=== PATIENT | female | born 1935 | race Caucasian/White ===

== ENCOUNTER → 2017-04-01 | Outpatient (CLI) | payer OTHER ==
[~2017-04-01] MED LIST: DIA2T; LISI-711 PO; METO25TA62 PO; SIMV-13; SIMV5TAB38; [UNRECOGNIZED DRUG - CODE]
== END | disposition home or self-care (01) ==
LOC: LAB 12:53
PROVIDERS: ATTEND Internal Medicine
DX: E05.90 Thyrotoxicosis, unspecified without thyrotoxic crisis or storm (principal)
CPT/HCPCS: 36415; 84439; 84443; 84481; 86376

== ENCOUNTER 2017-04-23 14:45 | Emergency (ER) | payer OTHER ==
[~2017-04-23] VITALS: Ht 154.9 cm; Wt 65.8 kg
[2017-04-23 15:58] VITALS: BP 156/62
[2017-04-23] MEDS ORDERED: NEOMYCIN-BACITRACIN-POLYM UNITDOSE PKG TOP OINT TOP ONE (17:00)
== END 2017-04-23 17:49 | disposition home or self-care (01) ==
LOC: ER 14:53
DX: S61.412A Laceration without foreign body of left hand, initial encounter (principal); S00.83XA Contusion of other part of head, initial encounter; S60.222A Contusion of left hand, initial encounter; M19.042 Primary osteoarthritis, left hand; F17.210 Nicotine dependence, cigarettes, uncomplicated; I10 Essential (primary) hypertension; E07.89 Other specified disorders of thyroid; Z90.49 Acquired absence of other specified parts of digestive tract; Z90.710 Acquired absence of both cervix and uterus; W01.0XXA Fall on same level from slipping, tripping and stumbling without subsequent striking against object, initial encounter; Y93.89 Activity, other specified; Y99.8 Other external cause status; Y92.89 Other specified places as the place of occurrence of the external cause
CPT/HCPCS: 12002; 70450; 73110

== ENCOUNTER → 2017-10-14 | Outpatient (CLI) | payer OTHER ==
[2017-10-14 13:25] LABS: Basophils # (auto) 0.1 uL; Basophils % (auto) 0.9 % (0.0-2.0); Eosinophils # (auto) 0.1 uL; Eosinophils % (auto) 2.5 % (0.0-7.0); Hematocrit 42.4 % (36.0-46.0); Hemoglobin 14.2 g/dL (12.2-16.2); Lymphocytes # (auto) 1.6 uL; Lymphocytes % (auto) 27.4 % (10.0-50.0); Mean Corpuscular Hemoglobin 30.4 pg (28.0-32.0); Mean Corpuscular Hgb Conc. 33.4 g/dL (32.0-36.0); Mean Platelet Volume 9.5 fL (6.9-10.8); Monocytes # (auto) 0.3 uL; Monocytes % (auto) 5.8 % (0.0-12.0); Neutrophils # (auto) 3.7 uL; Neutrophils % (auto) 63.4 % (37.0-80.0); Nucleated Red Blood Cells % 0.1 %; Platelet Count (auto) 155 10^3/uL (140-450); Red Cell Distribution Width 13.6 % (11.8-14.3); White Blood Cell 5.8 10^3/uL (4.4-10.8)
[2017-10-14 15:45] LABS: Albumin 3.8 g/dL (3.4-5.0); BUN/Creatinine Ratio 18.5; Bilirubin, Total 0.5 mg/dL (0.2-1.0); Calcium 9.5 mg/dL (8.5-10.1); Potassium 4.4 mmol/L (3.5-5.1); Total Protein 7.7 g/dL (6.4-8.2)
== END | disposition home or self-care (01) ==
LOC: LAB 12:31
PROVIDERS: ATTEND Internal Medicine
DX: I10 Essential (primary) hypertension (principal); E78.5 Hyperlipidemia, unspecified; E05.90 Thyrotoxicosis, unspecified without thyrotoxic crisis or storm; Z79.899 Other long term (current) drug therapy
CPT/HCPCS: 36415; 80053; 80061; 82306; 84439; 84443; 84481; 85025; 86800

== ENCOUNTER → 2017-10-29 | Outpatient (CLI) | payer OTHER | END | disposition home or self-care (01) | LOC: LAB 14:53 | PROVIDERS: ATTEND Internal Medicine | DX: I10 Essential (primary) hypertension (principal); E78.5 Hyperlipidemia, unspecified | CPT/HCPCS: 82270 ==

== ENCOUNTER → 2017-11-18 | Outpatient (CLI) | payer OTHER | END | disposition home or self-care (01) | LOC: XYW 09:31 | PROVIDERS: ATTEND Internal Medicine | DX: I35.0 Nonrheumatic aortic (valve) stenosis (principal) | CPT/HCPCS: 93306 ==

== ENCOUNTER → 2018-03-03 | Outpatient (CLI) | payer OTHER ==
[2018-03-02 11:45] LABS: Basophils # (auto) 0 uL; Basophils % (auto) 0.7 % (0.0-2.0); Eosinophils # (auto) 0.1 uL; Eosinophils % (auto) 1.6 % (0.0-7.0); Hematocrit 43.5 % (36.0-46.0); Hemoglobin 14.6 g/dL (12.2-16.2); Lymphocytes # (auto) 1.3 uL; Lymphocytes % (auto) 22.8 % (10.0-50.0); Mean Corpuscular Hemoglobin 29.9 pg (28.0-32.0); Mean Corpuscular Hgb Conc. 33.5 g/dL (32.0-36.0); Mean Corpuscular Volume 89.1 fL (80.0-100.0); Monocytes # (auto) 0.4 uL; Neutrophils # (auto) 3.9 uL; Neutrophils % (auto) 67.9 % (37.0-80.0); Platelet Count (auto) 156 10^3/uL (140-450); Red Blood Cells 4.89 10^6/uL (4.0-5.20); Red Cell Distribution Width 14.4 % (11.8-14.3); White Blood Cell 5.7 10^3/uL (4.4-10.8)
[2018-03-02 11:57] LABS: INR 0.97 (0.9-1.15); Prothrombin Time 10.6 sec (9.37-12.3)
== END | disposition home or self-care (01) ==
LOC: CT 08:51
PROVIDERS: ATTEND Surgery
DX: C34.91 Malignant neoplasm of unspecified part of right bronchus or lung (principal); I10 Essential (primary) hypertension; E05.90 Thyrotoxicosis, unspecified without thyrotoxic crisis or storm; E78.00 Pure hypercholesterolemia, unspecified; Z79.01 Long term (current) use of anticoagulants; Z79.899 Other long term (current) drug therapy
CPT/HCPCS: 10022; 32405; 36415; 71045; 77012; 85025; 85610

== ENCOUNTER → 2018-04-01 | Outpatient (CLI) | payer OTHER ==
[~2018-04-01] VITALS: Ht 157.5 cm; Wt 68.0 kg
[~2018-04-01] MED LIST changes: +ADENOSINE 57 MG in GIVE UN-DILUTED 0 ML IV ONE; +ADENOSINE 90 MG/30 ML INJ IV ONE; +CHOL20007 PO; +METH5TAB77 PO; +OMEP20TA PO; +SERT-135 PO; -SIMV-13; +SIMV-13 OR
== END | disposition home or self-care (01) ==
LOC: Rad HDHVI 13:41
PROVIDERS: ATTEND Internal Medicine Cardiovascular Disease
DX: I10 Essential (primary) hypertension (principal); E78.00 Pure hypercholesterolemia, unspecified; I25.10 Atherosclerotic heart disease of native coronary artery without angina pectoris; F17.200 Nicotine dependence, unspecified, uncomplicated; Z79.01 Long term (current) use of anticoagulants; Z79.899 Other long term (current) drug therapy
CPT/HCPCS: 78452; 93005; 96374; 96375; A9500; J0153

== ENCOUNTER → 2018-04-16 | Outpatient (CLI) | payer OTHER ==
[~2018-04-16] MED LIST changes: -ADENOSINE 57 MG in GIVE UN-DILUTED 0 ML IV ONE; -ADENOSINE 90 MG/30 ML INJ IV ONE; +ALBUTEROL SULF 2.5 MG/0.5ML(0.5%) NEB SOLN ONE
== END | disposition home or self-care (01) ==
LOC: RT 08:15
PROVIDERS: ATTEND Internal Medicine Pulmonary Disease
DX: Z01.811 Encounter for preprocedural respiratory examination (principal); E78.00 Pure hypercholesterolemia, unspecified; F17.200 Nicotine dependence, unspecified, uncomplicated; E78.5 Hyperlipidemia, unspecified; I12.9 Hypertensive chronic kidney disease with stage 1 through stage 4 chronic kidney disease, or unspecified chronic kidney disease; N18.3 Chronic kidney disease, stage 3 (moderate); Z79.01 Long term (current) use of anticoagulants
CPT/HCPCS: 94060; 94640

== ENCOUNTER → 2018-06-22 | Outpatient (CLI) | payer OTHER ==
[~2018-06-22] MED LIST changes: -ALBUTEROL SULF 2.5 MG/0.5ML(0.5%) NEB SOLN ONE; -DIA2T; -SIMV5TAB38; -[UNRECOGNIZED DRUG - CODE]
[2018-06-22 14:44] LABS: Basophils # (auto) 0.1 uL; Basophils % (auto) 0.7 % (0.0-2.0); Eosinophils # (auto) 0.2 uL; Eosinophils % (auto) 2.4 % (0.0-7.0); Hematocrit 34.8 % (36.0-46.0); Hemoglobin 11.4 g/dL (12.2-16.2); Lymphocytes # (auto) 1.7 uL; Lymphocytes % (auto) 20.4 % (10.0-50.0); Mean Corpuscular Hemoglobin 28.8 pg (28.0-32.0); Mean Corpuscular Hgb Conc. 32.8 g/dL (32.0-36.0); Mean Corpuscular Volume 87.9 fL (80.0-100.0); Monocytes # (auto) 0.4 uL; Monocytes % (auto) 5.2 % (0.0-12.0); Neutrophils # (auto) 5.9 uL; Neutrophils % (auto) 71.3 % (37.0-80.0); Platelet Count (auto) 198 10^3/uL (140-450); Red Blood Cells 3.96 10^6/uL (4.0-5.20); Red Cell Distribution Width 14.2 % (11.8-14.3); White Blood Cell 8.3 10^3/uL (4.4-10.8)
[2018-06-22 15:24] LABS: Albumin 3.7 g/dL (3.4-5.0); BUN/Creatinine Ratio 20.8; Bilirubin, Total 0.6 mg/dL (0.2-1.0); Calcium 9.5 mg/dL (8.5-10.1); Total Protein 7.8 g/dL (6.4-8.2)
== END | disposition home or self-care (01) ==
LOC: LAB 14:10
PROVIDERS: ATTEND Internal Medicine
DX: I10 Essential (primary) hypertension (principal); E78.5 Hyperlipidemia, unspecified; E03.9 Hypothyroidism, unspecified; J44.9 Chronic obstructive pulmonary disease, unspecified; Z87.891 Personal history of nicotine dependence; Z86.79 Personal history of other diseases of the circulatory system
CPT/HCPCS: 36415; 80053; 84443; 85025

== ENCOUNTER → 2018-06-29 | Outpatient (CLI) | payer OTHER | END | disposition home or self-care (01) | LOC: LAB 11:51 | PROVIDERS: ATTEND Internal Medicine | DX: C34.31 Malignant neoplasm of lower lobe, right bronchus or lung (principal); E03.9 Hypothyroidism, unspecified; E78.5 Hyperlipidemia, unspecified; J44.9 Chronic obstructive pulmonary disease, unspecified; I10 Essential (primary) hypertension | CPT/HCPCS: 36415; 83615 ==

== ENCOUNTER → 2018-12-10 | Outpatient (CLI) | payer OTHER ==
[~2018-12-10] MED LIST changes: +METH5T PO; -METH5TAB77 PO
[2018-12-10 13:27] LABS: Basophils # (auto) 0.1 uL; Eosinophils # (auto) 0.1 uL; Eosinophils % (auto) 2.3 % (0.0-7.0); Hematocrit 38.4 % (36.0-46.0); Hemoglobin 12.7 g/dL (12.2-16.2); Lymphocytes # (auto) 1.7 uL; Lymphocytes % (auto) 26.6 % (10.0-50.0); Mean Corpuscular Hemoglobin 27.7 pg (28.0-32.0); Mean Corpuscular Volume 83.9 fL (80.0-100.0); Monocytes # (auto) 0.4 uL; Monocytes % (auto) 5.5 % (0.0-12.0); Neutrophils # (auto) 4.2 uL; Neutrophils % (auto) 64.6 % (37.0-80.0); Platelet Count (auto) 194 10^3/uL (140-450); Red Blood Cells 4.57 10^6/uL (4.0-5.20); Red Cell Distribution Width 14.4 % (11.8-14.3); White Blood Cell 6.4 10^3/uL (4.4-10.8)
[2018-12-10 14:28] LABS: Albumin 3.9 g/dL (3.4-5.0); Anion Gap 4 (5-15); Blood Urea Nitrogen 23 mg/dL (7-18); Calcium 9.6 mg/dL (8.5-10.1); Carbon Dioxide 27 mmol/L (21-32); Chloride 107 mmol/L (98-107); Glucose 101 mg/dL (74-106); Potassium 4.1 mmol/L (3.5-5.1); Sodium 138 mmol/L (136-145)
[2018-12-10 14:48] LABS: Alanine Aminotransferase 16 U/L (13-56); Alkaline Phosphatase 89 U/L (45-117); Aspartate Aminotransferase 13 U/L (15-37); BUN/Creatinine Ratio 21.9; Bilirubin, Total 0.5 mg/dL (0.2-1.0); GFR African American > 60 mL/min; GFR Non-African American 53 mL/min; Total Protein 8.2 g/dL (6.4-8.2)
== END | disposition home or self-care (01) ==
LOC: LAB 12:59
PROVIDERS: ATTEND Internal Medicine
DX: I10 Essential (primary) hypertension (principal); E05.90 Thyrotoxicosis, unspecified without thyrotoxic crisis or storm
CPT/HCPCS: 36415; 80053; 84443; 85025

== ENCOUNTER → 2018-12-31 | Outpatient (CLI) | payer OTHER ==
[2018-12-31 15:20] LABS: Albumin 3.8 g/dL (3.4-5.0); Calcium 9.3 mg/dL (8.5-10.1)
[2018-12-31 15:22] LABS: BUN/Creatinine Ratio 20.4; Bilirubin, Total 0.5 mg/dL (0.2-1.0); Total Protein 8.3 g/dL (6.4-8.2)
[2018-12-31 15:23] LABS: Basophils # (auto) 0.1 uL; Basophils % (auto) 0.9 % (0.0-2.0); Eosinophils # (auto) 0.2 uL; Eosinophils % (auto) 2.5 % (0.0-7.0); Hematocrit 40.5 % (36.0-46.0); Hemoglobin 13.8 g/dL (12.2-16.2); Lymphocytes % (auto) 29.3 % (10.0-50.0); Mean Corpuscular Hemoglobin 28.4 pg (28.0-32.0); Mean Corpuscular Hgb Conc. 34.2 g/dL (32.0-36.0); Mean Corpuscular Volume 83.1 fL (80.0-100.0); Monocytes # (auto) 0.4 uL; Monocytes % (auto) 5.8 % (0.0-12.0); Neutrophils # (auto) 4.1 uL; Neutrophils % (auto) 61.5 % (37.0-80.0); Nucleated Red Blood Cells % 0.1 %; Platelet Count (auto) 185 10^3/uL (140-450); Red Blood Cells 4.87 10^6/uL (4.0-5.20); Red Cell Distribution Width 14.7 % (11.8-14.3); White Blood Cell 6.7 10^3/uL (4.4-10.8)
== END | disposition home or self-care (01) ==
LOC: LAB 14:36
PROVIDERS: ATTEND Internal Medicine
DX: C34.31 Malignant neoplasm of lower lobe, right bronchus or lung (principal)
CPT/HCPCS: 36415; 80053; 83615; 85025

== ENCOUNTER 2019-02-23 17:09 | Inpatient (IN) | payer OTHER | END 2019-02-26 16:15 | disposition home or self-care (01) | LOC: TELE-WESTW 02-24 00:02 → ER 17:09 → TELE 23:23 → WEST WING 23:50 | DX: I20.9 Angina pectoris, unspecified (principal); N39.0 Urinary tract infection, site not specified; J44.0 Chronic obstructive pulmonary disease with (acute) lower respiratory infection; M48.54XA Collapsed vertebra, not elsewhere classified, thoracic region, initial encounter for fracture; I10 Essential (primary) hypertension; J20.9 Acute bronchitis, unspecified ==

== ENCOUNTER → 2019-03-23 | Outpatient (CLI) | payer OTHER ==
[~2019-03-23] MED LIST changes: -LISI-711 PO; -OMEP20TA PO
[2019-03-23 14:46] LABS: Basophils # (auto) 0 uL; Basophils % (auto) 0.7 % (0.0-2.0); Eosinophils # (auto) 0.3 uL; Eosinophils % (auto) 5.1 % (0.0-7.0); Hematocrit 36.7 % (36.0-46.0); Hemoglobin 12.3 g/dL (12.2-16.2); Lymphocytes # (auto) 1.5 uL; Lymphocytes % (auto) 28.6 % (10.0-50.0); Mean Corpuscular Hemoglobin 28.2 pg (28.0-32.0); Mean Corpuscular Hgb Conc. 33.4 g/dL (32.0-36.0); Mean Corpuscular Volume 84.5 fL (80.0-100.0); Monocytes # (auto) 0.3 uL; Monocytes % (auto) 6.1 % (0.0-12.0); Neutrophils # (auto) 3.1 uL; Neutrophils % (auto) 59.5 % (37.0-80.0); Platelet Count (auto) 146 10^3/uL (140-450); Red Blood Cells 4.34 10^6/uL (4.0-5.20); Red Cell Distribution Width 15.5 % (11.8-14.3); White Blood Cell 5.2 10^3/uL (4.4-10.8)
[2019-03-23 15:01] LABS: INR 0.99 (0.9-1.15); Partial Thromboplastin Time 26.6 sec (23.78-33.04); Prothrombin Time 10.6 sec (9.27-12.13)
== END | disposition home or self-care (01) ==
LOC: LAB 14:29
DX: Z01.818 Encounter for other preprocedural examination (principal); R48.9 Unspecified symbolic dysfunctions
CPT/HCPCS: 36415; 85025; 85610; 85730

== ENCOUNTER → 2019-06-17 | Outpatient (CLI) | payer OTHER ==
[~2019-06-17] MED LIST changes: -SERT-135 PO; +SERT100T PO
[2019-06-17 14:37] LABS: Basophils # (auto) 0.1 uL; Basophils % (auto) 0.9 % (0.0-2.0); Eosinophils # (auto) 0.1 uL; Eosinophils % (auto) 1.5 % (0.0-7.0); Hematocrit 43.8 % (36.0-46.0); Hemoglobin 14.9 g/dL (12.2-16.2); Lymphocytes # (auto) 2.2 uL; Lymphocytes % (auto) 27.1 % (10.0-50.0); Mean Corpuscular Hemoglobin 29.6 pg (28.0-32.0); Mean Corpuscular Hgb Conc. 34.1 g/dL (32.0-36.0); Monocytes # (auto) 0.7 uL; Neutrophils # (auto) 5.2 uL; Neutrophils % (auto) 62.5 % (37.0-80.0); Nucleated Red Blood Cells % 0.1 %; Platelet Count (auto) 177 10^3/uL (140-450); Red Blood Cells 5.03 10^6/uL (4.0-5.20); Red Cell Distribution Width 13.9 % (11.8-14.3); White Blood Cell 8.2 10^3/uL (4.4-10.8)
[2019-06-17 15:06] LABS: Albumin 4.1 g/dL (3.4-5.0); Calcium 10.1 mg/dL (8.5-10.1); Potassium 4.3 mmol/L (3.5-5.1)
[2019-06-17 15:09] LABS: BUN/Creatinine Ratio 18.4; Bilirubin, Total 0.5 mg/dL (0.2-1.0); Total Protein 8.3 g/dL (6.4-8.2)
== END | disposition home or self-care (01) ==
LOC: LAB 14:13
PROVIDERS: ATTEND Internal Medicine
DX: C34.31 Malignant neoplasm of lower lobe, right bronchus or lung (principal)
CPT/HCPCS: 36415; 80053; 83615; 85025

== ENCOUNTER → 2019-07-20 | Outpatient (CLI) | payer OTHER | END | disposition home or self-care (01) | LOC: LAB 10:58 | PROVIDERS: ATTEND Internal Medicine | DX: C34.31 Malignant neoplasm of lower lobe, right bronchus or lung (principal) | CPT/HCPCS: 36415; 82565; 84520 ==

== ENCOUNTER → 2019-08-08 | Outpatient (CLI) | payer OTHER ==
[2019-08-08 11:44] LABS: Basophils # (auto) 0 uL; Basophils % (auto) 0.9 % (0.0-2.0); Eosinophils # (auto) 0.1 uL; Eosinophils % (auto) 2.6 % (0.0-7.0); Lymphocytes % (auto) 20.1 % (10.0-50.0); Mean Corpuscular Hemoglobin 29.3 pg (28.0-32.0); Mean Corpuscular Hgb Conc. 33.3 g/dL (32.0-36.0); Monocytes # (auto) 0.3 uL; Monocytes % (auto) 6.1 % (0.0-12.0); Neutrophils # (auto) 3.5 uL; Neutrophils % (auto) 70.3 % (37.0-80.0); Nucleated Red Blood Cells % 0.1 %; Platelet Count (auto) 187 10^3/uL (140-450); Red Blood Cells 4.78 10^6/uL (4.0-5.20); Red Cell Distribution Width 14.6 % (11.8-14.3); White Blood Cell 5.1 10^3/uL (4.4-10.8)
[2019-08-08 12:10] LABS: Albumin 3.5 g/dL (3.4-5.0); BUN/Creatinine Ratio 28.4; Calcium 9.8 mg/dL (8.5-10.1)
[2019-08-08 12:12] LABS: Bilirubin, Total 0.7 mg/dL (0.2-1.0); Total Protein 7.2 g/dL (6.4-8.2)
== END | disposition home or self-care (01) ==
LOC: LAB 10:41
PROVIDERS: ATTEND Internal Medicine
DX: C34.31 Malignant neoplasm of lower lobe, right bronchus or lung (principal)
CPT/HCPCS: 36415; 80053; 85025

== ENCOUNTER → 2019-08-12 | Outpatient (CLI) | payer OTHER ==
[2019-08-12 12:58] LABS: Basophils # (auto) 0 uL; Basophils % (auto) 0.9 % (0.0-2.0); Eosinophils # (auto) 0.1 uL; Hematocrit 38.3 % (36.0-46.0); Hemoglobin 12.8 g/dL (12.2-16.2); Lymphocytes # (auto) 0.4 uL; Mean Corpuscular Hemoglobin 29.5 pg (28.0-32.0); Mean Corpuscular Hgb Conc. 33.4 g/dL (32.0-36.0); Mean Corpuscular Volume 88.2 fL (80.0-100.0); Monocytes # (auto) 0.1 uL; Monocytes % (auto) 3.4 % (0.0-12.0); Neutrophils # (auto) 3.7 uL; Neutrophils % (auto) 83.7 % (37.0-80.0); Nucleated Red Blood Cells % 0.1 %; Platelet Count (auto) 140 10^3/uL (140-450); Red Blood Cells 4.34 10^6/uL (4.0-5.20); Red Cell Distribution Width 14.5 % (11.8-14.3); White Blood Cell 4.4 10^3/uL (4.4-10.8)
[2019-08-12 13:45] LABS: Albumin 3.5 g/dL (3.4-5.0); Calcium 8.9 mg/dL (8.5-10.1); Potassium 4.5 mmol/L (3.5-5.1)
[2019-08-12 13:49] LABS: BUN/Creatinine Ratio 26.1; Bilirubin, Total 0.7 mg/dL (0.2-1.0)
== END | disposition home or self-care (01) ==
LOC: LAB 12:37
PROVIDERS: ATTEND Internal Medicine
DX: C34.31 Malignant neoplasm of lower lobe, right bronchus or lung (principal)
CPT/HCPCS: 36415; 80053; 83615; 85025

== ENCOUNTER → 2019-08-19 | Outpatient (CLI) | payer OTHER ==
[2019-08-19 12:22] LABS: Basophils # (auto) 0 uL; Basophils % (auto) 1.5 % (0.0-2.0); Eosinophils # (auto) 0 uL; Hematocrit 36.7 % (36.0-46.0); Hemoglobin 12.6 g/dL (12.2-16.2); Lymphocytes # (auto) 0.4 uL; Mean Corpuscular Hemoglobin 29.8 pg (28.0-32.0); Mean Corpuscular Hgb Conc. 34.5 g/dL (32.0-36.0); Mean Corpuscular Volume 86.4 fL (80.0-100.0); Monocytes # (auto) 0.1 uL; Monocytes % (auto) 4.6 % (0.0-12.0); Neutrophils # (auto) 2.1 uL; Neutrophils % (auto) 76.9 % (37.0-80.0); Nucleated Red Blood Cells % 0.2 %; Platelet Count (auto) 120 10^3/uL (140-450); Red Blood Cells 4.24 10^6/uL (4.0-5.20); White Blood Cell 2.8 10^3/uL (4.4-10.8)
[2019-08-19 12:45] LABS: Albumin 3.6 g/dL (3.4-5.0); Calcium 9.2 mg/dL (8.5-10.1)
[2019-08-19 12:47] LABS: BUN/Creatinine Ratio 22.2; Bilirubin, Total 1.2 mg/dL (0.2-1.0); Total Protein 7.2 g/dL (6.4-8.2)
== END | disposition home or self-care (01) ==
LOC: LAB 12:05
PROVIDERS: ATTEND Internal Medicine
DX: C34.31 Malignant neoplasm of lower lobe, right bronchus or lung (principal)
CPT/HCPCS: 36415; 80053; 85025

== ENCOUNTER → 2019-08-26 | Outpatient (CLI) | payer OTHER ==
[2019-08-26 12:47] LABS: Basophils # (auto) 0 uL; Basophils % (auto) 0.9 % (0.0-2.0); Eosinophils # (auto) 0 uL; Eosinophils % (auto) 0.4 % (0.0-7.0); Hematocrit 40.6 % (36.0-46.0); Hemoglobin 13.7 g/dL (12.2-16.2); Lymphocytes # (auto) 0.3 uL; Lymphocytes % (auto) 8.5 % (10.0-50.0); Mean Corpuscular Hemoglobin 29.7 pg (28.0-32.0); Mean Corpuscular Hgb Conc. 33.8 g/dL (32.0-36.0); Mean Corpuscular Volume 87.9 fL (80.0-100.0); Monocytes # (auto) 0.1 uL; Monocytes % (auto) 3.7 % (0.0-12.0); Neutrophils # (auto) 3.3 uL; Neutrophils % (auto) 86.5 % (37.0-80.0); Nucleated Red Blood Cells % 0.5 %; Platelet Count (auto) 104 10^3/uL (140-450); Red Blood Cells 4.62 10^6/uL (4.0-5.20); Red Cell Distribution Width 14.4 % (11.8-14.3); White Blood Cell 3.9 10^3/uL (4.4-10.8)
[2019-08-26 13:04] LABS: Potassium 4.2 mmol/L (3.5-5.1)
[2019-08-26 13:08] LABS: Bilirubin, Total 1.3 mg/dL (0.2-1.0); Calcium 9.4 mg/dL (8.5-10.1); Total Protein 7.8 g/dL (6.4-8.2)
[2019-08-26 13:12] LABS: BUN/Creatinine Ratio 28.3
== END | disposition home or self-care (01) ==
LOC: LAB 11:59
PROVIDERS: ATTEND Internal Medicine
DX: C34.31 Malignant neoplasm of lower lobe, right bronchus or lung (principal)
CPT/HCPCS: 36415; 80053; 83615; 85025

== ENCOUNTER → 2019-09-02 | Outpatient (CLI) | payer OTHER ==
[2019-09-02 12:45] LABS: Basophils # (auto) 0 uL; Basophils % (auto) 1.2 % (0.0-2.0); Eosinophils # (auto) 0 uL; Eosinophils % (auto) 0.8 % (0.0-7.0); Hematocrit 37.9 % (36.0-46.0); Hemoglobin 12.8 g/dL (12.2-16.2); Lymphocytes # (auto) 0.3 uL; Lymphocytes % (auto) 11.8 % (10.0-50.0); Mean Corpuscular Hemoglobin 30.2 pg (28.0-32.0); Mean Corpuscular Hgb Conc. 33.8 g/dL (32.0-36.0); Mean Corpuscular Volume 89.3 fL (80.0-100.0); Monocytes # (auto) 0.1 uL; Monocytes % (auto) 4.2 % (0.0-12.0); Neutrophils # (auto) 2.1 uL; Nucleated Red Blood Cells % 0.7 %; Platelet Count (auto) 99 10^3/uL (140-450); Red Blood Cells 4.24 10^6/uL (4.0-5.20); Red Cell Distribution Width 14.6 % (11.8-14.3); White Blood Cell 2.5 10^3/uL (4.4-10.8)
[2019-09-02 13:09] LABS: Albumin 3.7 g/dL (3.4-5.0); Calcium 9.3 mg/dL (8.5-10.1); Potassium 4.5 mmol/L (3.5-5.1)
[2019-09-02 13:12] LABS: BUN/Creatinine Ratio 25.9; Total Protein 7.3 g/dL (6.4-8.2)
== END | disposition home or self-care (01) ==
LOC: LAB 11:56
PROVIDERS: ATTEND Internal Medicine
DX: C34.31 Malignant neoplasm of lower lobe, right bronchus or lung (principal); J44.9 Chronic obstructive pulmonary disease, unspecified; I71.4 Abdominal aortic aneurysm, without rupture
CPT/HCPCS: 36415; 80053; 83615; 85025

== ENCOUNTER → 2019-09-09 | Outpatient (CLI) | payer OTHER ==
[2019-09-09 12:13] LABS: Hemoglobin 11.5 g/dL (12.2-16.2)
[2019-09-09 12:15] LABS: Hematocrit 33.3 % (36.0-46.0); Mean Corpuscular Hemoglobin 30.8 pg (28.0-32.0); Mean Corpuscular Hgb Conc. 34.5 g/dL (32.0-36.0); Mean Corpuscular Volume 89.4 fL (80.0-100.0); Platelet Count (auto) 124 10^3/uL (140-450); Red Blood Cells 3.72 10^6/uL (4.0-5.20); Red Cell Distribution Width 15.3 % (11.8-14.3)
[2019-09-09 12:42] LABS: BUN/Creatinine Ratio 31.7; Calcium 9.1 mg/dL (8.5-10.1); Potassium 3.9 mmol/L (3.5-5.1)
[2019-09-09 13:05] LABS: Basophils % (manual) 0 (0.0-2.0); Blast Cells 0; Eosinophils % (manual) 0 (0-7); Metamyelocytes % 0; Myelocytes % 0; Promyelocytes % 0; Reactive Lymphocytes 0; White Blood Cell 1.5 10^3/uL (4.4-10.8)
[2019-09-09 13:08] LABS: Band Neutrophils % (manual) 1; Lymphocytes % (manual) 12 (10.0-50.0); Monocytes % (manual) 5 (0-12)
== END | disposition home or self-care (01) ==
LOC: LAB 11:56
PROVIDERS: ATTEND Internal Medicine
DX: C34.31 Malignant neoplasm of lower lobe, right bronchus or lung (principal)
CPT/HCPCS: 36415; 80048; 85007; 85027

== ENCOUNTER → 2019-09-15 | Outpatient (CLI) | payer OTHER ==
[2019-09-15 11:15] LABS: Basophils # (auto) 0 uL; Basophils % (auto) 1.7 % (0.0-2.0); Eosinophils # (auto) 0 uL; Eosinophils % (auto) 0.2 % (0.0-7.0); Hematocrit 35.7 % (36.0-46.0); Hemoglobin 11.9 g/dL (12.2-16.2); Lymphocytes # (auto) 0.3 uL; Lymphocytes % (auto) 10.9 % (10.0-50.0); Mean Corpuscular Hemoglobin 29.9 pg (28.0-32.0); Mean Corpuscular Hgb Conc. 33.4 g/dL (32.0-36.0); Mean Corpuscular Volume 89.6 fL (80.0-100.0); Monocytes # (auto) 0.2 uL; Monocytes % (auto) 10.2 % (0.0-12.0); Neutrophils # (auto) 1.8 uL; Nucleated Red Blood Cells % 0.9 %; Platelet Count (auto) 153 10^3/uL (140-450); Red Blood Cells 3.98 10^6/uL (4.0-5.20); Red Cell Distribution Width 16.5 % (11.8-14.3); White Blood Cell 2.3 10^3/uL (4.4-10.8)
[2019-09-15 11:42] LABS: Potassium 3.8 mmol/L (3.5-5.1)
[2019-09-15 11:45] LABS: BUN/Creatinine Ratio 30.8; Calcium 9.4 mg/dL (8.5-10.1)
== END | disposition home or self-care (01) ==
LOC: LAB 10:41
PROVIDERS: ATTEND Internal Medicine Hematology & Oncology
DX: C34.31 Malignant neoplasm of lower lobe, right bronchus or lung (principal)
CPT/HCPCS: 36415; 80048; 85025

== ENCOUNTER → 2019-09-26 | Outpatient (CLI) | payer OTHER ==
[2019-09-26 10:56] LABS: Basophils # (auto) 0 uL; Basophils % (auto) 0.8 % (0.0-2.0); Eosinophils # (auto) 0 uL; Eosinophils % (auto) 0.2 % (0.0-7.0); Hematocrit 36.4 % (36.0-46.0); Hemoglobin 12.5 g/dL (12.2-16.2); Lymphocytes # (auto) 0.7 uL; Lymphocytes % (auto) 15.3 % (10.0-50.0); Mean Corpuscular Hemoglobin 31.1 pg (28.0-32.0); Mean Corpuscular Hgb Conc. 34.2 g/dL (32.0-36.0); Mean Corpuscular Volume 90.9 fL (80.0-100.0); Monocytes # (auto) 0.4 uL; Monocytes % (auto) 8.9 % (0.0-12.0); Neutrophils # (auto) 3.2 uL; Neutrophils % (auto) 74.8 % (37.0-80.0); Nucleated Red Blood Cells % 0.2 %; Platelet Count (auto) 117 10^3/uL (140-450); Red Blood Cells 4.01 10^6/uL (4.0-5.20); White Blood Cell 4.3 10^3/uL (4.4-10.8)
[2019-09-26 11:34] LABS: Potassium 4.4 mmol/L (3.5-5.1)
[2019-09-26 11:42] LABS: Albumin 3.4 g/dL (3.4-5.0); BUN/Creatinine Ratio 18.1; Bilirubin, Total 0.6 mg/dL (0.2-1.0); Calcium 9.4 mg/dL (8.5-10.1); Total Protein 6.9 g/dL (6.4-8.2)
== END | disposition home or self-care (01) ==
LOC: LAB 10:14
PROVIDERS: ATTEND Internal Medicine
DX: C34.31 Malignant neoplasm of lower lobe, right bronchus or lung (principal); J44.9 Chronic obstructive pulmonary disease, unspecified; F32.9 Major depressive disorder, single episode, unspecified; Z90.2 Acquired absence of lung [part of]; Z88.1 Allergy status to other antibiotic agents; Z87.891 Personal history of nicotine dependence; Z87.09 Personal history of other diseases of the respiratory system; Z82.3 Family history of stroke; Z80.0 Family history of malignant neoplasm of digestive organs; Z82.49 Family history of ischemic heart disease and other diseases of the circulatory system
CPT/HCPCS: 36415; 80053; 83615; 85025

== ENCOUNTER → 2019-10-05 | Outpatient (CLI) | payer OTHER ==
[2019-10-05 12:17] LABS: Basophils # (auto) 0 uL; Basophils % (auto) 0.8 % (0.0-2.0); Eosinophils # (auto) 0.1 uL; Eosinophils % (auto) 1.8 % (0.0-7.0); Hematocrit 31.4 % (36.0-46.0); Hemoglobin 10.9 g/dL (12.2-16.2); Lymphocytes # (auto) 0.7 uL; Lymphocytes % (auto) 17.3 % (10.0-50.0); Mean Corpuscular Hemoglobin 31.6 pg (28.0-32.0); Mean Corpuscular Hgb Conc. 34.6 g/dL (32.0-36.0); Mean Corpuscular Volume 91.5 fL (80.0-100.0); Monocytes # (auto) 0.4 uL; Monocytes % (auto) 9.4 % (0.0-12.0); Neutrophils # (auto) 3.1 uL; Neutrophils % (auto) 70.7 % (37.0-80.0); Nucleated Red Blood Cells % 0.4 %; Platelet Count (auto) 120 10^3/uL (140-450); Red Blood Cells 3.43 10^6/uL (4.0-5.20); White Blood Cell 4.3 10^3/uL (4.4-10.8)
[2019-10-05 12:38] LABS: Albumin 3.5 g/dL (3.4-5.0); Calcium 9.5 mg/dL (8.5-10.1)
[2019-10-05 12:41] LABS: Bilirubin, Total 0.7 mg/dL (0.2-1.0); Total Protein 6.5 g/dL (6.4-8.2)
== END | disposition home or self-care (01) ==
LOC: LAB 12:06
PROVIDERS: ATTEND Internal Medicine
DX: C34.31 Malignant neoplasm of lower lobe, right bronchus or lung (principal); Z87.891 Personal history of nicotine dependence; Z88.1 Allergy status to other antibiotic agents
CPT/HCPCS: 36415; 80053; 83615; 85025

== ENCOUNTER → 2019-10-17 | Outpatient (CLI) | payer OTHER ==
[2019-10-17 11:02] LABS: Basophils # (auto) 0 uL; Basophils % (auto) 1.4 % (0.0-2.0); Eosinophils # (auto) 0 uL; Eosinophils % (auto) 0.9 % (0.0-7.0); Hematocrit 27.8 % (36.0-46.0); Hemoglobin 9.9 g/dL (12.2-16.2); Lymphocytes # (auto) 0.5 uL; Lymphocytes % (auto) 18.7 % (10.0-50.0); Mean Corpuscular Hemoglobin 32.4 pg (28.0-32.0); Mean Corpuscular Hgb Conc. 35.8 g/dL (32.0-36.0); Mean Corpuscular Volume 90.6 fL (80.0-100.0); Monocytes # (auto) 0.3 uL; Monocytes % (auto) 10.9 % (0.0-12.0); Neutrophils # (auto) 1.7 uL; Neutrophils % (auto) 68.1 % (37.0-80.0); Platelet Count (auto) 134 10^3/uL (140-450); Red Blood Cells 3.07 10^6/uL (4.0-5.20); White Blood Cell 2.5 10^3/uL (4.4-10.8)
[2019-10-17 11:06] LABS: Albumin 3.6 g/dL (3.4-5.0); Potassium 3.3 mmol/L (3.5-5.1)
[2019-10-17 11:08] LABS: Red Cell Distribution Width 21.1 % (11.8-14.3)
[2019-10-17 11:12] LABS: BUN/Creatinine Ratio 22.7; Total Protein 7.2 g/dL (6.4-8.2)
== END | disposition home or self-care (01) ==
LOC: LAB 10:29
PROVIDERS: ATTEND Internal Medicine
DX: C34.31 Malignant neoplasm of lower lobe, right bronchus or lung (principal)
CPT/HCPCS: 36415; 80053; 83615; 85025

== ENCOUNTER → 2019-11-01 | Outpatient (CLI) | payer OTHER ==
[2019-11-01 12:31] LABS: Basophils # (auto) 0 uL; Basophils % (auto) 0.6 % (0.0-2.0); Eosinophils # (auto) 0.1 uL; Eosinophils % (auto) 0.8 % (0.0-7.0); Hematocrit 27.5 % (36.0-46.0); Hemoglobin 9.3 g/dL (12.2-16.2); Lymphocytes # (auto) 0.4 uL; Lymphocytes % (auto) 5.9 % (10.0-50.0); Mean Corpuscular Hemoglobin 33.7 pg (28.0-32.0); Mean Corpuscular Hgb Conc. 33.8 g/dL (32.0-36.0); Mean Corpuscular Volume 99.6 fL (80.0-100.0); Monocytes # (auto) 0.4 uL; Monocytes % (auto) 5.7 % (0.0-12.0); Neutrophils # (auto) 5.7 uL; Nucleated Red Blood Cells % 0.4 %; Platelet Count (auto) 120 10^3/uL (140-450); Red Blood Cells 2.76 10^6/uL (4.0-5.20); White Blood Cell 6.5 10^3/uL (4.4-10.8)
[2019-11-01 12:48] LABS: Red Cell Distribution Width 21.4 % (11.8-14.3)
[2019-11-01 13:00] LABS: Potassium 4.5 mmol/L (3.5-5.1)
[2019-11-01 13:08] LABS: Albumin 3.2 g/dL (3.4-5.0); BUN/Creatinine Ratio 18.8; Bilirubin, Total 0.7 mg/dL (0.2-1.0); Calcium 8.8 mg/dL (8.5-10.1); Total Protein 6.5 g/dL (6.4-8.2)
== END | disposition home or self-care (01) ==
LOC: LAB 12:06
PROVIDERS: ATTEND Internal Medicine
DX: C34.31 Malignant neoplasm of lower lobe, right bronchus or lung (principal)
CPT/HCPCS: 36415; 80053; 85025

== ENCOUNTER 2019-11-23 11:59 | Inpatient (IN) | payer OTHER ==
[~2019-11-23] VITALS: Ht 157.5 cm; Wt 58.1 kg
[~2019-11-23 11:59] MED LIST changes: -METO25TA62 PO; +METO25TA93 PO
[2019-11-23 13:33] LABS: Basophils # (auto) 0 uL; Basophils % (auto) 0.7 % (0.0-2.0); Eosinophils # (auto) 0.1 uL; Eosinophils % (auto) 1.9 % (0.0-7.0); Hematocrit 27.5 % (36.0-46.0); Hemoglobin 9.2 g/dL (12.2-16.2); Lymphocytes # (auto) 0.3 uL; Lymphocytes % (auto) 5.6 % (10.0-50.0); Mean Corpuscular Hgb Conc. 33.6 g/dL (32.0-36.0); Monocytes # (auto) 0.4 uL; Monocytes % (auto) 7.5 % (0.0-12.0); Neutrophils # (auto) 4.5 uL; Neutrophils % (auto) 84.3 % (37.0-80.0); Platelet Count (auto) 165 10^3/uL (140-450); Red Cell Distribution Width 16.5 % (11.8-14.3); White Blood Cell 5.3 10^3/uL (4.4-10.8)
[2019-11-23 13:54] LABS: Albumin 2.8 g/dL (3.4-5.0); Calcium 8.8 mg/dL (8.5-10.1); Potassium 3.1 mmol/L (3.5-5.1)
[2019-11-23 13:57] LABS: BUN/Creatinine Ratio 24.6; Bilirubin, Total 0.6 mg/dL (0.2-1.0); Total Protein 6.8 g/dL (6.4-8.2)
[2019-11-23] MEDS ORDERED: ALBUTEROL SULF 2.5 MG/0.5ML(0.5%) NEB SOLN NEB ONE (15:00)
[2019-11-23] MEDS ORDERED: methylPREDNISolone SOD SUCC 125 MG/2 ML VL IV ONE (15:00)
[2019-11-23] MEDS ORDERED: IPRATROPIUM BROM 0.5 MG/2.5ML INH SOL NEB ONE (15:00)
[2019-11-23] MEDS ORDERED: POTASSIUM EFFERVESENT TAB 25 MEQ PO ONE (15:15)
[2019-11-23] MEDS ORDERED: LEVOFLOXACIN 500MG 100 ML IV ONE (15:15)
[2019-11-23] MEDS ORDERED: FUROSEMIDE 40 MG/4 ML VIAL IV ONE (15:15)
[2019-11-23] MEDS ORDERED: ONDANSETRON HCL 4 MG/2 ML VIAL ONE (16:28)
[2019-11-23] MEDS ORDERED: ONDANSETRON HCL 4 MG/2 ML VIAL IV ONE (16:30)
[2019-11-23 18:09] VITALS: BP 117/56
[2019-11-23] MEDS ORDERED: MORPHINE SULF INJ 2 MG/ML SYRINGE 1ML IV PRN ×2 (18:15)
[2019-11-23] MEDS ORDERED: ALBUTEROL SULF 2.5 MG/0.5ML(0.5%) NEB SOLN NEB PRN (18:15)
[2019-11-23] MEDS ORDERED: ACETAMINOPHEN 500 MG TAB PO PRN (18:15)
[2019-11-23] MEDS ORDERED: ONDANSETRON HCL 4 MG/2 ML VIAL IV PRN (18:15)
[2019-11-23] MEDS ORDERED: LACTULOSE 20Gm/30ML SOLN PO PRN (18:15)
[2019-11-23] MEDS ORDERED: NITROGLYCERIN 0.4 MG SL TAB SL PRN (18:15)
[2019-11-23 18:58] VITALS: BP 126/75
[2019-11-23 21:16] LABS: Urine Bacteria NONE SEEN /hpf (None Seen); Urine Blood Negative /uL (Negative); Urine Specific Gravity 1.008 (1.001-1.035); Urine WBC 2 /hpf (0 - 5)
[2019-11-23 22:00] VITALS: BP 125/56
[2019-11-23] MEDS: CARVEDILOL 12.5 MG TAB PO SCH (22:00)
[2019-11-23] MEDS ORDERED: ENOXAPARIN SOD 60 MG/0.6 ML SYRINGE SC SCH (22:00)
[2019-11-23] MEDS: ATORVASTATIN 20 MG TAB PO SCH (23:52)
[2019-11-23] MEDS: methylPREDNISolone SOD SUCC 40 MG/ML VL IV SCH (23:54)
[2019-11-23] MEDS: CLINDAMYCIN 600MG IV 50 ML IV SCH (23:54)
[2019-11-24] VITALS: BP 107/44
[2019-11-24] MEDS: ALBUTEROL SULF 2.5 MG/0.5ML(0.5%) NEB SOLN NEB SCH ×4 (00:05→18:18)
[2019-11-24] MEDS: IPRATROPIUM BROM 0.5 MG/2.5ML INH SOL NEB SCH ×4 (00:05→18:18)
[2019-11-24 04:00] VITALS: BP 105/58
[2019-11-24 05:39] LABS: Basophils # (auto) 0 uL; Eosinophils # (auto) 0 uL; Lymphocytes # (auto) 0.2 uL; Monocytes % (auto) 1.8 % (0.0-12.0); White Blood Cell 2.8 10^3/uL (4.4-10.8)
[2019-11-24 05:42] LABS: Basophils % (auto) 0.2 % (0.0-2.0); Hematocrit 24.3 % (36.0-46.0); Mean Corpuscular Hgb Conc. 32.9 g/dL (32.0-36.0); Mean Corpuscular Volume 100.2 fL (80.0-100.0); Monocytes # (auto) 0 uL; Neutrophils # (auto) 2.6 uL; Nucleated Red Blood Cells % 0.1 %; Platelet Count (auto) 156 10^3/uL (140-450); Red Blood Cells 2.43 10^6/uL (4.0-5.20); Red Cell Distribution Width 16.6 % (11.8-14.3)
[2019-11-24 05:56] LABS: Albumin 2.7 g/dL (3.4-5.0); Potassium 3.8 mmol/L (3.5-5.1)
[2019-11-24 06:00] LABS: BUN/Creatinine Ratio 28.6; Bilirubin, Total 0.6 mg/dL (0.2-1.0); Total Protein 6.3 g/dL (6.4-8.2)
[2019-11-24] MEDS: CLINDAMYCIN 600MG IV 50 ML IV SCH (06:49)
[2019-11-24 08:00] VITALS: BP 119/66
[2019-11-24] MEDS ORDERED: LEVOFLOXACIN 500MG 100 ML IV SCH (10:00)
[2019-11-24] MEDS: ASPirin 81 mg TAB PO SCH (10:00)
[2019-11-24] MEDS: methylPREDNISolone SOD SUCC 40 MG/ML VL IV SCH ×2 (10:11→22:46)
[2019-11-24] MEDS: DABIGATRAN 75 MG CAP PO SCH ×2 (10:12→22:47)
[2019-11-24] MEDS: SERTRALINE HCL 50 MG TAB PO SCH (10:14)
[2019-11-24] MEDS: CHOLECALCIFEROL (VITD3) 1,000IU=25mCg TAB PO SCH (10:14)
[2019-11-24] MEDS: CARVEDILOL 12.5 MG TAB PO SCH ×2 (10:15→22:48)
[2019-11-24] MEDS: FUROSEMIDE 40 MG/4 ML VIAL IV SCH (10:16)
[2019-11-24] MEDS: POTASSIUM CHL 20 Meq TABLET PO SCH (10:16)
[2019-11-24 11:40] VITALS: BP 121/58
[2019-11-24] MEDS ORDERED: PIPERACILLIN-TAZOB 3.375GM 100 ML IV ONE (14:00)
[2019-11-24] MEDS: Ensure HIGH Protein Chocolate 8oz Bottle PO SCH ×2 (14:10→18:17)
[2019-11-24] MEDS ORDERED: PANTOPRAZOLE 40 MG TAB PO ONE (14:15)
[2019-11-24] MEDS: ACETAMINOPHEN 500 MG TAB PO PRN (14:17)
[2019-11-24] MEDS: MAGNESIUM SULFATE 1GM/100ML 100 ML IV SCH ×2 (15:16→16:21)
[2019-11-24 16:00] VITALS: BP 102/62
[2019-11-24] MEDS: PIPERACILLIN-TAZOB 3.375GM 100 ML IV SCH (18:23)
[2019-11-24 20:00] VITALS: BP 115/53
[2019-11-24] MEDS: traMADol HCL 50 MG TAB PO PRN (22:47)
[2019-11-24] MEDS: ATORVASTATIN 20 MG TAB PO SCH (22:48)
[2019-11-25] VITALS (7 sets, daily range): BP systolic 115–139; BP diastolic 53–77
[2019-11-25] MEDS: IPRATROPIUM BROM 0.5 MG/2.5ML INH SOL NEB SCH ×4 (00:17→19:46)
[2019-11-25] MEDS: ALBUTEROL SULF 2.5 MG/0.5ML(0.5%) NEB SOLN NEB SCH ×4 (00:17→19:46)
[2019-11-25] MEDS: PIPERACILLIN-TAZOB 3.375GM 100 ML IV SCH ×5 (01:25→23:40)
[2019-11-25 06:22] LABS: Basophils # (auto) 0 uL; Eosinophils # (auto) 0 uL; Hemoglobin 8.3 g/dL (12.2-16.2); Lymphocytes # (auto) 0.2 uL; Monocytes # (auto) 0.2 uL
[2019-11-25 06:25] LABS: Basophils % (auto) 0.1 % (0.0-2.0); Hematocrit 24.4 % (36.0-46.0); Neutrophils # (auto) 8.1 uL; Neutrophils % (auto) 95.9 % (37.0-80.0); Platelet Count (auto) 183 10^3/uL (140-450); Red Blood Cells 2.51 10^6/uL (4.0-5.20); Red Cell Distribution Width 16.6 % (11.8-14.3); White Blood Cell 8.4 10^3/uL (4.4-10.8)
[2019-11-25 06:45] LABS: Calcium 8.9 mg/dL (8.5-10.1); Potassium 4.5 mmol/L (3.5-5.1)
[2019-11-25 06:54] LABS: BUN/Creatinine Ratio 40.7; Magnesium 2.2 mg/dL (1.6-2.6)
[2019-11-25] MEDS: Ensure HIGH Protein Chocolate 8oz Bottle PO SCH ×3 (08:00→18:11)
[2019-11-25] MEDS: CARVEDILOL 12.5 MG TAB PO SCH ×2 (10:00→21:04)
[2019-11-25] MEDS: ASPirin 81 mg TAB PO SCH (10:00)
[2019-11-25] MEDS: FUROSEMIDE 40 MG/4 ML VIAL IV SCH (10:36)
[2019-11-25] MEDS: methylPREDNISolone SOD SUCC 40 MG/ML VL IV SCH ×2 (10:36→21:04)
[2019-11-25] MEDS: POTASSIUM CHL 20 Meq TABLET PO SCH (10:37)
[2019-11-25] MEDS: DABIGATRAN 75 MG CAP PO SCH ×2 (10:37→21:05)
[2019-11-25] MEDS: PANTOPRAZOLE 40 MG TAB PO SCH (10:38)
[2019-11-25] MEDS: SERTRALINE HCL 50 MG TAB PO SCH (10:38)
[2019-11-25] MEDS: CHOLECALCIFEROL (VITD3) 1,000IU=25mCg TAB PO SCH (10:38)
[2019-11-25] MEDS: methIMAzole 5 MG TAB PO SCH (12:04)
[2019-11-25] MEDS ORDERED: SERT-274 PO (16:31)
[2019-11-25] MEDS ORDERED: DABI75CA5 PO (16:31)
[2019-11-25] MEDS: ATORVASTATIN 20 MG TAB PO SCH (21:05)
[2019-11-26] MEDS: IPRATROPIUM BROM 0.5 MG/2.5ML INH SOL NEB SCH ×4 (00:37→18:34)
[2019-11-26] MEDS: ALBUTEROL SULF 2.5 MG/0.5ML(0.5%) NEB SOLN NEB SCH ×4 (00:37→18:33)
[2019-11-26 04:00] VITALS: BP 136/68
[2019-11-26] MEDS: PIPERACILLIN-TAZOB 3.375GM 100 ML IV SCH ×3 (05:32→18:15)
[2019-11-26 05:48] LABS: Potassium 4.3 mmol/L (3.5-5.1)
[2019-11-26 05:54] LABS: BUN/Creatinine Ratio 43.2; Calcium 9.1 mg/dL (8.5-10.1)
[2019-11-26 07:40] VITALS: BP 124/64
[2019-11-26] MEDS: Ensure HIGH Protein Chocolate 8oz Bottle PO SCH ×3 (08:00→18:15)
[2019-11-26] MEDS: DABIGATRAN 75 MG CAP PO SCH ×2 (09:53→22:34)
[2019-11-26] MEDS: PANTOPRAZOLE 40 MG TAB PO SCH (09:53)
[2019-11-26] MEDS: SERTRALINE HCL 50 MG TAB PO SCH (09:53)
[2019-11-26] MEDS: CHOLECALCIFEROL (VITD3) 1,000IU=25mCg TAB PO SCH (09:53)
[2019-11-26] MEDS: POTASSIUM CHL 20 Meq TABLET PO SCH (09:53)
[2019-11-26] MEDS: methylPREDNISolone SOD SUCC 40 MG/ML VL IV SCH ×2 (09:53→22:34)
[2019-11-26] MEDS: ASPirin 81 mg TAB PO SCH (09:54)
[2019-11-26] MEDS: FUROSEMIDE 40 MG/4 ML VIAL IV SCH (09:54)
[2019-11-26] MEDS: CARVEDILOL 12.5 MG TAB PO SCH ×2 (09:54→22:34)
[2019-11-26 11:50] VITALS: BP 113/62
[2019-11-26] MEDS: ACETAMINOPHEN 500 MG TAB PO PRN (12:44)
[2019-11-26 15:45] VITALS: BP 133/77
[2019-11-26 19:30] VITALS: BP 133/77
[2019-11-26 20:00] VITALS: BP 152/83
[2019-11-26] MEDS: ATORVASTATIN 20 MG TAB PO SCH (22:33)
[2019-11-26] MEDS: TEMAZEPAM 15 MG CAP PO PRN (22:34)
[2019-11-27] VITALS: BP 131/82
[2019-11-27] MEDS: ALBUTEROL SULF 2.5 MG/0.5ML(0.5%) NEB SOLN NEB SCH ×4 (00:26→19:18)
[2019-11-27] MEDS: IPRATROPIUM BROM 0.5 MG/2.5ML INH SOL NEB SCH ×4 (00:26→19:18)
[2019-11-27 03:39] VITALS: BP 137/80
[2019-11-27] MEDS: PIPERACILLIN-TAZOB 3.375GM 100 ML IV SCH ×4 (06:45→17:57)
[2019-11-27 08:00] VITALS: BP 146/80
[2019-11-27] MEDS: Ensure HIGH Protein Chocolate 8oz Bottle PO SCH ×3 (08:16→18:00)
[2019-11-27] MEDS: ASPirin 81 mg TAB PO SCH (10:00)
[2019-11-27] MEDS: methylPREDNISolone SOD SUCC 40 MG/ML VL IV SCH ×2 (10:24→22:01)
[2019-11-27] MEDS: FUROSEMIDE 40 MG/4 ML VIAL IV SCH (10:24)
[2019-11-27] MEDS: PANTOPRAZOLE 40 MG TAB PO SCH (10:24)
[2019-11-27] MEDS: POTASSIUM CHL 20 Meq TABLET PO SCH (10:24)
[2019-11-27] MEDS: SERTRALINE HCL 50 MG TAB PO SCH (10:24)
[2019-11-27] MEDS: DABIGATRAN 75 MG CAP PO SCH ×2 (10:24→22:03)
[2019-11-27] MEDS: CARVEDILOL 12.5 MG TAB PO SCH ×2 (10:25→22:02)
[2019-11-27] MEDS: CHOLECALCIFEROL (VITD3) 1,000IU=25mCg TAB PO SCH (10:25)
[2019-11-27 12:00] VITALS: BP 126/66
[2019-11-27] MEDS: ACETAMINOPHEN 500 MG TAB PO PRN (20:43)
[2019-11-27 22:00] VITALS: BP 118/70
[2019-11-27] MEDS: ATORVASTATIN 20 MG TAB PO SCH (22:03)
[2019-11-28] MEDS: ALBUTEROL SULF 2.5 MG/0.5ML(0.5%) NEB SOLN NEB SCH ×5 (00:22→23:59)
[2019-11-28] MEDS: IPRATROPIUM BROM 0.5 MG/2.5ML INH SOL NEB SCH ×5 (00:22→23:59)
[2019-11-28] MEDS: PIPERACILLIN-TAZOB 3.375GM 100 ML IV SCH ×5 (00:30→23:48)
[2019-11-28 05:24] VITALS: BP_SYST 109; BP_SYST 124; BP_DIAS 53; BP_DIAS 75
[2019-11-28 05:59] LABS: Basophils # (auto) 0 uL; Basophils % (auto) 0.1 % (0.0-2.0); Eosinophils # (auto) 0 uL; Eosinophils % (auto) 0.1 % (0.0-7.0); Hematocrit 26.2 % (36.0-46.0); Lymphocytes # (auto) 0.3 uL; Lymphocytes % (auto) 5.3 % (10.0-50.0); Mean Corpuscular Hemoglobin 33.2 pg (28.0-32.0); Mean Corpuscular Hgb Conc. 34.3 g/dL (32.0-36.0); Mean Corpuscular Volume 96.8 fL (80.0-100.0); Monocytes # (auto) 0.3 uL; Monocytes % (auto) 5.9 % (0.0-12.0); Neutrophils % (auto) 88.6 % (37.0-80.0); Platelet Count (auto) 203 10^3/uL (140-450); Red Blood Cells 2.71 10^6/uL (4.0-5.20); Red Cell Distribution Width 16.3 % (11.8-14.3); White Blood Cell 5.6 10^3/uL (4.4-10.8)
[2019-11-28 06:19] LABS: BUN/Creatinine Ratio 46.3; Calcium 9.3 mg/dL (8.5-10.1); Potassium 4.5 mmol/L (3.5-5.1)
[2019-11-28] MEDS: Ensure HIGH Protein Chocolate 8oz Bottle PO SCH ×3 (08:00→18:01)
[2019-11-28 09:00] VITALS: BP 143/72
[2019-11-28] MEDS: CHOLECALCIFEROL (VITD3) 1,000IU=25mCg TAB PO SCH (10:40)
[2019-11-28] MEDS: ASPirin 81 mg TAB PO SCH (10:42)
[2019-11-28] MEDS: CARVEDILOL 12.5 MG TAB PO SCH ×2 (10:42→21:37)
[2019-11-28] MEDS: PANTOPRAZOLE 40 MG TAB PO SCH (10:42)
[2019-11-28] MEDS: POTASSIUM CHL 20 Meq TABLET PO SCH (10:43)
[2019-11-28] MEDS: SERTRALINE HCL 50 MG TAB PO SCH (10:43)
[2019-11-28] MEDS: methylPREDNISolone SOD SUCC 40 MG/ML VL IV SCH (10:44)
[2019-11-28] MEDS: FUROSEMIDE 40 MG/4 ML VIAL IV SCH (10:44)
[2019-11-28] MEDS: DABIGATRAN 75 MG CAP PO SCH ×2 (11:20→21:38)
[2019-11-28] MEDS: methIMAzole 5 MG TAB PO SCH (12:02)
[2019-11-28 13:00] VITALS: BP 140/67
[2019-11-28 17:00] VITALS: BP 119/77
[2019-11-28] MEDS: ATORVASTATIN 20 MG TAB PO SCH (21:37)
[2019-11-28] MEDS: TEMAZEPAM 15 MG CAP PO PRN (21:38)
[2019-11-28 21:59] VITALS: BP 101/57
[2019-11-28] MEDS ORDERED: methylPREDNISolone SOD SUCC 40 MG/ML VL IV SCH (22:00)
[2019-11-29] MEDS: traMADol HCL 50 MG TAB PO PRN (03:22)
[2019-11-29 05:04] VITALS: BP 110/65
[2019-11-29] MEDS: IPRATROPIUM BROM 0.5 MG/2.5ML INH SOL NEB SCH ×2 (07:18→12:51)
[2019-11-29] MEDS: ALBUTEROL SULF 2.5 MG/0.5ML(0.5%) NEB SOLN NEB SCH ×2 (07:18→12:51)
[2019-11-29] MEDS: PANTOPRAZOLE 40 MG TAB PO SCH (08:27)
[2019-11-29] MEDS: Ensure HIGH Protein Chocolate 8oz Bottle PO SCH ×2 (08:27→12:08)
[2019-11-29 09:00] VITALS: BP 98/70
[2019-11-29] MEDS ORDERED: FUROSEMIDE 40 MG TAB PO SCH (10:00)
[2019-11-29] MEDS ORDERED: predniSONE 20 MG TAB PO SCH (10:00)
[2019-11-29] MEDS: ASPirin 81 mg TAB PO SCH (10:00)
[2019-11-29] MEDS: CARVEDILOL 12.5 MG TAB PO SCH (10:23)
[2019-11-29] MEDS: CHOLECALCIFEROL (VITD3) 1,000IU=25mCg TAB PO SCH (10:24)
[2019-11-29] MEDS: DABIGATRAN 75 MG CAP PO SCH (10:24)
[2019-11-29] MEDS: POTASSIUM CHL 20 Meq TABLET PO SCH (10:24)
[2019-11-29] MEDS: SERTRALINE HCL 50 MG TAB PO SCH (10:25)
[2019-11-29] MEDS: PIPERACILLIN-TAZOB 3.375GM 100 ML IV SCH (12:08)
[2019-11-29 13:00] VITALS: BP 103/68
[2019-11-29] MEDS ORDERED: LEVO750T2 PO (14:41)
[2019-11-29] MEDS ORDERED: PANT40TA2 PO (14:41)
[2019-11-29 16:34] VITALS: BP 103/68
[2019-11-29 17:00] VITALS: BP 110/66
== END 2019-11-29 17:39 | disposition home health service (06) | DRG 280 ==
LOC: EDBD 11:59 → EDUNIT# 11:59 → ER 11:59 → TELE 12:00 → DOU IN ICU 21:58 → WEST WING 11-27 18:05 → TELE-WESTW 11-28 07:22
PROVIDERS: ADMIT Internal Medicine; ATTEND Internal Medicine
DX: I21.A1 Myocardial infarction type 2 (principal); J69.0 Pneumonitis due to inhalation of food and vomit; I50.33 Acute on chronic diastolic (congestive) heart failure; J96.21 Acute and chronic respiratory failure with hypoxia; E44.0 Moderate protein-calorie malnutrition; G81.91 Hemiplegia, unspecified affecting right dominant side; J98.11 Atelectasis; R65.10 Systemic inflammatory response syndrome (SIRS) of non-infectious origin without acute organ dysfunction; D64.9 Anemia, unspecified; R79.89 Other specified abnormal findings of blood chemistry; E87.6 Hypokalemia; I48.0 Paroxysmal atrial fibrillation; E03.9 Hypothyroidism, unspecified; E78.5 Hyperlipidemia, unspecified; I71.4 Abdominal aortic aneurysm, without rupture; E05.90 Thyrotoxicosis, unspecified without thyrotoxic crisis or storm; I35.0 Nonrheumatic aortic (valve) stenosis; D63.8 Anemia in other chronic diseases classified elsewhere; I11.0 Hypertensive heart disease with heart failure; K21.9 Gastro-esophageal reflux disease without esophagitis; J43.9 Emphysema, unspecified; Z79.899 Other long term (current) drug therapy; Z80.0 Family history of malignant neoplasm of digestive organs; Z82.3 Family history of stroke; Z82.49 Family history of ischemic heart disease and other diseases of the circulatory system; Z85.038 Personal history of other malignant neoplasm of large intestine; Z86.79 Personal history of other diseases of the circulatory system; Z87.891 Personal history of nicotine dependence; Z90.2 Acquired absence of lung [part of]; Z99.81 Dependence on supplemental oxygen; Z68.23 Body mass index [BMI] 23.0-23.9, adult; Z90.49 Acquired absence of other specified parts of digestive tract; Z90.710 Acquired absence of both cervix and uterus; Z88.8 Allergy status to other drugs, medicaments and biological substances; Z85.118 Personal history of other malignant neoplasm of bronchus and lung
CPT/HCPCS: 36415; 71045; 71250; 80048; 80053; 80061; 81001; 82550; 83036; 83735; 83880; 84436; 84443; 84481; 84484; 85025; 87040; 87070; 87086; 87205; 87804; 93005; 93306; 93970; 94640; 94660; 96365; 96375; 97116; 97530; G0378; J1956; J2405; J2543; J3490

== ENCOUNTER → 2019-12-16 | Outpatient (CLI) | payer OTHER ==
[~2019-12-16] MED LIST changes: +ALBU2TAB4 PO; +DABI75CA5 PO; +IPRA0.03; +LEVO750T2 PO; +PANT40TA2 PO; +SERT-274 PO; -SERT100T PO
[2019-12-16 12:19] LABS: Basophils # (auto) 0 uL; Basophils % (auto) 0.7 % (0.0-2.0); Eosinophils # (auto) 0.3 uL; Eosinophils % (auto) 5.7 % (0.0-7.0); Hemoglobin 10.6 g/dL (12.2-16.2); Lymphocytes # (auto) 0.3 uL; Lymphocytes % (auto) 6.3 % (10.0-50.0); Mean Corpuscular Hemoglobin 32.2 pg (28.0-32.0); Mean Corpuscular Volume 97.7 fL (80.0-100.0); Monocytes # (auto) 0.3 uL; Monocytes % (auto) 6.6 % (0.0-12.0); Neutrophils % (auto) 80.7 % (37.0-80.0); Nucleated Red Blood Cells % 0.1 %; Platelet Count (auto) 84 10^3/uL (140-450); Red Blood Cells 3.28 10^6/uL (4.0-5.20); Red Cell Distribution Width 15.9 % (11.8-14.3); White Blood Cell 4.9 10^3/uL (4.4-10.8)
[2019-12-16 13:22] LABS: Albumin 3.1 g/dL (3.4-5.0); Calcium 9.4 mg/dL (8.5-10.1); Potassium 4.1 mmol/L (3.5-5.1)
[2019-12-16 13:28] LABS: BUN/Creatinine Ratio 24.3; Bilirubin, Direct 0.3 mg/dL (0-0.2); Bilirubin, Total 0.8 mg/dL (0.2-1.0); Total Protein 6.6 g/dL (6.4-8.2)
== END | disposition home or self-care (01) ==
LOC: LAB 11:37
PROVIDERS: ATTEND Specialist
DX: E78.5 Hyperlipidemia, unspecified (principal); I10 Essential (primary) hypertension; R94.5 Abnormal results of liver function studies; D64.9 Anemia, unspecified; E11.9 Type 2 diabetes mellitus without complications; E03.9 Hypothyroidism, unspecified
CPT/HCPCS: 36415; 80048; 80061; 80076; 83036; 84443; 85025

== ENCOUNTER → 2020-01-19 | Outpatient (CLI) | payer OTHER ==
[~2020-01-19] MED LIST changes: +DIGO0.12 PO; -LEVO750T2 PO
[2020-01-19 14:54] LABS: Basophils # (auto) 0 uL; Basophils % (auto) 0.5 % (0.0-2.0); Eosinophils # (auto) 0.4 uL; Hematocrit 38.5 % (36.0-46.0); Hemoglobin 12.3 g/dL (12.2-16.2); Lymphocytes # (auto) 0.6 uL; Lymphocytes % (auto) 10.4 % (10.0-50.0); Mean Corpuscular Hemoglobin 29.8 pg (28.0-32.0); Mean Corpuscular Hgb Conc. 31.9 g/dL (32.0-36.0); Mean Corpuscular Volume 93.3 fL (80.0-100.0); Monocytes # (auto) 0.4 uL; Monocytes % (auto) 7.9 % (0.0-12.0); Neutrophils % (auto) 74.2 % (37.0-80.0); Nucleated Red Blood Cells % 0.1 %; Platelet Count (auto) 148 10^3/uL (140-450); Red Blood Cells 4.12 10^6/uL (4.0-5.20); Red Cell Distribution Width 17.2 % (11.8-14.3); White Blood Cell 5.4 10^3/uL (4.4-10.8)
[2020-01-19 15:08] LABS: Calcium 9.9 mg/dL (8.5-10.1); Potassium 4.7 mmol/L (3.5-5.1)
== END | disposition home or self-care (01) ==
LOC: LAB 14:34
PROVIDERS: ATTEND Internal Medicine
DX: I50.9 Heart failure, unspecified (principal); I48.91 Unspecified atrial fibrillation; J44.9 Chronic obstructive pulmonary disease, unspecified
CPT/HCPCS: 36415; 80048; 80162; 85025

== ENCOUNTER 2020-01-27 06:57 | Inpatient (IN) | payer OTHER ==
[~2020-01-27] VITALS: Ht 154.9 cm; Wt 55.0 kg
[2020-01-27 08:20] LABS: Basophils # (auto) 0 10 ^3/uL (0-0.2); Basophils % (auto) 0.8 % (0.0-2.0); Eosinophils # (auto) 0.1 10 ^3/uL (0-0.8); Eosinophils % (auto) 1.6 % (0.0-7.0); Hematocrit 34.5 % (36.0-46.0); Hemoglobin 11.4 g/dL (12.2-16.2); Lymphocytes # (auto) 0.2 10 ^3/uL (0.4-5.4); Lymphocytes % (auto) 4.7 % (10.0-50.0); Mean Corpuscular Hemoglobin 30.2 pg (28.0-32.0); Mean Corpuscular Volume 91.5 fL (80.0-100.0); Monocytes # (auto) 0.5 10 ^3/uL (0-1.3); Monocytes % (auto) 9.5 % (0.0-12.0); Neutrophils # (auto) 4.3 10 ^3/uL (1.6-8.6); Neutrophils % (auto) 83.4 % (37.0-80.0); Nucleated Red Blood Cells % 0.1 %; Platelet Count (auto) 227 10^3/uL (140-450); Red Blood Cells 3.77 10^6/uL (4.0-5.20); Red Cell Distribution Width 17.7 % (11.8-14.3); White Blood Cell 5.2 10^3/uL (4.4-10.8)
[2020-01-27 08:36] LABS: BUN/Creatinine Ratio 34.3; Calcium 9.7 mg/dL (8.5-10.1); Potassium 4.5 mmol/L (3.5-5.1)
[2020-01-27 08:38] LABS: INR 1.05 (0.9-1.15); Partial Thromboplastin Time 29.8 sec (23.64-32.05)
[2020-01-27] MEDS ORDERED: ANGIOMAX 250 MG VIAL IV ONE (09:31)
[2020-01-27] MEDS ORDERED: MIDAZOLAM HCL 1MG/1ML-2 ML VIAL ONE (09:32)
[2020-01-27] MEDS ORDERED: SODIUM CHL 0.9% 0 ML ONE (09:32)
[2020-01-27] MEDS ORDERED: fentaNYL CITRATE 100 MCG/2 ML VL ONE (09:32)
[2020-01-27] MEDS ORDERED: IOHEXOL 350 MG/ML 100ML IJ ONE (09:36)
[2020-01-27] MEDS ORDERED: LIDOCAINE 2%HCL (LOCAL ANESTH.) INJ 20ML MDV ONE (09:36)
[2020-01-27] MEDS ORDERED: HEPARIN SODIUM (PORCINE) 5000 UNITS/ML 1ML VIAL ONE (10:46)
[2020-01-27] MEDS ORDERED: CLOPIDOGREL 300 MG TAB ONE (11:00)
[2020-01-27] MEDS ORDERED: ONDANSETRON HCL 4 MG/2 ML VIAL ONE (11:13)
[2020-01-27] MEDS ORDERED: NITROGLYCERIN 0.4 MG SL TAB SL PRN (12:15)
[2020-01-27] MEDS ORDERED: HYDROcodone-ACET 5/325MG TAB PO PRN (12:15)
[2020-01-27] MEDS ORDERED: DIGOXIN 0.125 MG TAB PO SCH ×2 (12:15→12:33)
[2020-01-27] MEDS: DIGOXIN 0.125 MG TAB PO SCH (15:45)
[2020-01-27 17:00] VITALS: BP 153/104
[2020-01-27 20:29] LABS: Urine Bacteria FEW /hpf (None Seen); Urine Blood Negative /uL (Negative); Urine Budding Yeast FEW /hpf (None Seen); Urine WBC 26 /hpf (0 - 5)
[2020-01-27 20:39] LABS: Urine Specific Gravity > 1.050 (1.001-1.035)
[2020-01-27] MEDS: DABIGATRAN 75 MG CAP PO SCH (21:47)
[2020-01-27] MEDS: ACETAMINOPHEN 500 MG TAB PO PRN (21:48)
[2020-01-27] MEDS: METOPROLOL SUCCINATE XL 50 MG TAB PO SCH (21:48)
[2020-01-27] MEDS: ATORVASTATIN 20 MG TAB PO SCH (21:48)
[2020-01-27 22:00] VITALS: BP 112/64
[2020-01-27 23:05] VITALS: BP 112/64
[2020-01-28 05:30] VITALS: BP 125/60
[2020-01-28] MEDS: ACETAMINOPHEN 500 MG TAB PO PRN ×2 (05:48→23:10)
[2020-01-28 08:31] VITALS: BP 120/71
[2020-01-28] MEDS ORDERED: ENOXAPARIN SOD 60 MG/0.6 ML SYRINGE SC SCH (10:00)
[2020-01-28] MEDS: DABIGATRAN 75 MG CAP PO SCH ×2 (10:08→23:10)
[2020-01-28] MEDS: CHOLECALCIFEROL (VITD3) 1,000IU=25mCg TAB PO SCH (10:08)
[2020-01-28] MEDS: METOPROLOL SUCCINATE XL 50 MG TAB PO SCH (10:09)
[2020-01-28] MEDS: SERTRALINE HCL 50 MG TAB PO SCH (10:10)
[2020-01-28] MEDS: DIGOXIN 0.125 MG TAB PO SCH (10:13)
[2020-01-28] MEDS: ONDANSETRON HCL 4 MG/2 ML VIAL IV PRN (11:13)
[2020-01-28 12:31] VITALS: BP 93/62
[2020-01-28 17:20] VITALS: BP 109/62
[2020-01-28] MEDS: ATORVASTATIN 20 MG TAB PO SCH (23:10)
[2020-01-29 05:31] VITALS: BP 119/57
[2020-01-29 09:00] VITALS: BP 118/70
[2020-01-29] MEDS ORDERED: ACETAMINOPHEN 500 MG TAB PO PRN (10:45)
[2020-01-29] MEDS ORDERED: HYDROcodone-ACET 5/325MG TAB PO PRN (10:45)
[2020-01-29] MEDS: DABIGATRAN 75 MG CAP PO SCH ×3 (10:52→23:35)
[2020-01-29] MEDS: SERTRALINE HCL 50 MG TAB PO SCH (10:53)
[2020-01-29] MEDS: CHOLECALCIFEROL (VITD3) 1,000IU=25mCg TAB PO SCH (10:53)
[2020-01-29] MEDS: METOPROLOL SUCCINATE XL 50 MG TAB PO SCH (10:58)
[2020-01-29] MEDS: DIGOXIN 0.125 MG TAB PO SCH (10:59)
[2020-01-29 13:00] VITALS: BP 112/63
[2020-01-29] MEDS: ONDANSETRON HCL 4 MG/2 ML VIAL IV PRN (13:16)
[2020-01-29 17:00] VITALS: BP 109/55
[2020-01-29 20:00] VITALS: BP 95/56
[2020-01-29] MEDS: ATORVASTATIN 20 MG TAB PO SCH (21:57)
[2020-01-30] VITALS (40 sets, daily range): BP systolic 75–156; BP diastolic 16–92
[2020-01-30] MEDS: IPRATROPIUM BROM 0.5 MG/2.5ML INH SOL NEB PRN (07:18)
[2020-01-30] MEDS: ALBUTEROL SULF 2.5 MG/0.5ML(0.5%) NEB SOLN NEB PRN (07:18)
[2020-01-30 09:12] LABS: Hematocrit 31.7 % (36.0-46.0); Hemoglobin 10.6 g/dL (12.2-16.2); Mean Corpuscular Hemoglobin 30.7 pg (28.0-32.0); Mean Corpuscular Hgb Conc. 33.4 g/dL (32.0-36.0); Mean Corpuscular Volume 91.9 fL (80.0-100.0); Platelet Count (auto) 255 10^3/uL (140-450); Red Blood Cells 3.44 10^6/uL (4.0-5.20); White Blood Cell 8.1 10^3/uL (4.4-10.8)
[2020-01-30 09:22] LABS: Band Neutrophils % (manual) 0; Basophils % (manual) 0 (0.0-2.0); Blast Cells 0; Metamyelocytes % 0; Myelocytes % 0; Promyelocytes % 0; Reactive Lymphocytes 0
[2020-01-30 09:32] LABS: BUN/Creatinine Ratio 25.4; Calcium 9.6 mg/dL (8.5-10.1); Potassium 4.8 mmol/L (3.5-5.1)
[2020-01-30 09:41] LABS: INR 1.08 (0.9-1.15); Partial Thromboplastin Time 33.1 sec (23.64-32.05)
[2020-01-30] MEDS: DABIGATRAN 75 MG CAP PO SCH ×2 (09:46→23:08)
[2020-01-30] MEDS ORDERED: LIDOCAINE 2%HCL (LOCAL ANESTH.) INJ 20ML MDV ONE (09:49)
[2020-01-30] MEDS ORDERED: IOHEXOL 350 MG/ML 100ML IJ ONE ×3 (09:49→11:45)
[2020-01-30] MEDS: METOPROLOL SUCCINATE XL 50 MG TAB PO SCH (10:00)
[2020-01-30] MEDS: SERTRALINE HCL 50 MG TAB PO SCH (10:00)
[2020-01-30] MEDS: CHOLECALCIFEROL (VITD3) 1,000IU=25mCg TAB PO SCH (10:00)
[2020-01-30] MEDS ORDERED: fentaNYL CITRATE 100 MCG/2 ML VL ONE (10:02)
[2020-01-30] MEDS ORDERED: diphenhdrAMINE HCL 50 MG/1 ML VL ONE (10:02)
[2020-01-30] MEDS ORDERED: SODIUM CHL 0.9% 50 ML ONE ×2 (10:03→11:31)
[2020-01-30] MEDS ORDERED: ANGIOMAX 250 MG VIAL IV ONE ×2 (10:03→11:31)
[2020-01-30] MEDS ORDERED: MIDAZOLAM HCL 1MG/1ML-2 ML VIAL ONE ×2 (10:03→11:34)
[2020-01-30 10:28] LABS: Eosinophils % (manual) 2 (0-7); Lymphocytes % (manual) 9 (10.0-50.0); Monocytes % (manual) 3 (0-12)
[2020-01-30] MEDS ORDERED: IODIXANOL 320MG/ML 100ML BTL IV ONE ×2 (10:46→11:46)
[2020-01-30] MEDS: methIMAzole 5 MG TAB PO SCH (12:00)
[2020-01-30] MEDS ORDERED: ASPirin 325 MG TAB ONE (12:39)
[2020-01-30] MEDS ORDERED: CLOPIDOGREL 300 MG TAB ONE (12:39)
[2020-01-30] MEDS ORDERED: NOREPINEPHRINE 8 MG/250ML KIT 0 ML IV ONE (13:15)
[2020-01-30] MEDS ORDERED: PHENYLEPHRINE IV 250 ML IV ONE (13:18)
[2020-01-30 13:39] LABS: Hematocrit 28.2 % (36.0-46.0); Hemoglobin 9.4 g/dL (12.2-16.2)
[2020-01-30] MEDS: SODIUM CHLORIDE 0.9% 1,000 ML IV SCH (14:30)
[2020-01-30] MEDS ORDERED: DIGOXIN (250MCG/ML) 2 ML AMPULE IV ONE ×2 (17:00→20:00)
[2020-01-30] MEDS: PHENYLEPHRINE IV 250 ML IV SCH ×2 (17:13→21:21)
[2020-01-30] MEDS: ATORVASTATIN 20 MG TAB PO SCH (23:08)
[2020-01-31] VITALS (94 sets, daily range): BP systolic 86–146; BP diastolic 43–111
[2020-01-31] MEDS: SODIUM CHLORIDE 0.9% 1,000 ML IV SCH ×3 (02:45→20:24)
[2020-01-31 03:37] LABS: Basophils # (auto) 0.1 10 ^3/uL (0-0.2); Basophils % (auto) 0.4 % (0.0-2.0); Eosinophils # (auto) 0 10 ^3/uL (0-0.8); Eosinophils % (auto) 0.1 % (0.0-7.0); Hematocrit 23.2 % (36.0-46.0); Hemoglobin 7.4 g/dL (12.2-16.2); Lymphocytes # (auto) 0.4 10 ^3/uL (0.4-5.4); Lymphocytes % (auto) 2.9 % (10.0-50.0); Mean Corpuscular Hemoglobin 29.6 pg (28.0-32.0); Mean Corpuscular Hgb Conc. 32.1 g/dL (32.0-36.0); Mean Corpuscular Volume 92.2 fL (80.0-100.0); Monocytes # (auto) 1.2 10 ^3/uL (0-1.3); Monocytes % (auto) 8.1 % (0.0-12.0); Neutrophils # (auto) 12.9 10 ^3/uL (1.6-8.6); Neutrophils % (auto) 88.5 % (37.0-80.0); Platelet Count (auto) 244 10^3/uL (140-450); Red Blood Cells 2.51 10^6/uL (4.0-5.20); Red Cell Distribution Width 17.7 % (11.8-14.3); White Blood Cell 14.6 10^3/uL (4.4-10.8)
[2020-01-31 03:55] LABS: Calcium 8.3 mg/dL (8.5-10.1); Magnesium 1.3 mg/dL (1.6-2.6); Potassium 4.6 mmol/L (3.5-5.1)
[2020-01-31] MEDS: MAGNESIUM SULFATE 1GM/100ML 100 ML IV SCH ×2 (09:45→10:52)
[2020-01-31] MEDS: PHENYLEPHRINE IV 250 ML IV SCH ×3 (09:46→23:55)
[2020-01-31] MEDS ORDERED: DIGOXIN (250MCG/ML) 2 ML AMPULE IV SCH (10:00)
[2020-01-31] MEDS: METOPROLOL SUCCINATE XL 50 MG TAB PO SCH (10:00)
[2020-01-31] MEDS: DABIGATRAN 75 MG CAP PO SCH ×2 (10:00→22:19)
[2020-01-31] MEDS ORDERED: MAGNESIUM SULFATE 1GM/100ML 100 ML IV SCH (10:00)
[2020-01-31] MEDS ORDERED: ASPirin 81 mg TAB PO SCH (10:00)
[2020-01-31] MEDS: SERTRALINE HCL 50 MG TAB PO SCH (10:00)
[2020-01-31] MEDS: CHOLECALCIFEROL (VITD3) 1,000IU=25mCg TAB PO SCH (10:00)
[2020-01-31] MEDS: CLOPIDOGREL BISULFATE 75 MG TAB PO SCH (10:07)
[2020-01-31 10:38] LABS: Hemoglobin 7.7 g/dL (12.2-16.2)
[2020-01-31 10:40] LABS: Hematocrit 23.9 % (36.0-46.0)
[2020-01-31] MEDS ORDERED: PANTOPRAZOLE 40 MG/10 ML VIAL INJ IV ONE (13:30)
[2020-01-31] MEDS: MORPHINE SULF INJ 2 MG/ML SYRINGE 1ML IV PRN ×2 (14:19→20:37)
[2020-01-31] MEDS: ATORVASTATIN 20 MG TAB PO SCH (22:19)
[2020-02-01] VITALS (55 sets, daily range): BP systolic 95–150; BP diastolic 52–81
[2020-02-01] MEDS: ALBUTEROL SULF 2.5 MG/0.5ML(0.5%) NEB SOLN NEB PRN (00:08)
[2020-02-01] MEDS: IPRATROPIUM BROM 0.5 MG/2.5ML INH SOL NEB PRN (00:08)
[2020-02-01] MEDS: MORPHINE SULF INJ 2 MG/ML SYRINGE 1ML IV PRN ×3 (00:50→15:43)
[2020-02-01 04:22] LABS: Basophils # (auto) 0 10 ^3/uL (0-0.2); Basophils % (auto) 0.4 % (0.0-2.0); Eosinophils # (auto) 0 10 ^3/uL (0-0.8); Eosinophils % (auto) 0.1 % (0.0-7.0); Hematocrit 26.7 % (36.0-46.0); Hemoglobin 8.8 g/dL (12.2-16.2); Lymphocytes # (auto) 0.2 10 ^3/uL (0.4-5.4); Mean Corpuscular Hemoglobin 30.5 pg (28.0-32.0); Mean Corpuscular Volume 92.6 fL (80.0-100.0); Monocytes % (auto) 8.1 % (0.0-12.0); Neutrophils % (auto) 89.4 % (37.0-80.0); Nucleated Red Blood Cells % 0.2 %; Platelet Count (auto) 224 10^3/uL (140-450); Red Blood Cells 2.88 10^6/uL (4.0-5.20); Red Cell Distribution Width 16.9 % (11.8-14.3); White Blood Cell 12.3 10^3/uL (4.4-10.8)
[2020-02-01] MEDS: SODIUM CHLORIDE 0.9% 1,000 ML IV SCH ×2 (05:21→05:30)
[2020-02-01] MEDS: CHOLECALCIFEROL (VITD3) 1,000IU=25mCg TAB PO SCH (09:36)
[2020-02-01] MEDS: PANTOPRAZOLE 40 MG/10 ML VIAL INJ IV SCH (09:36)
[2020-02-01] MEDS: SERTRALINE HCL 50 MG TAB PO SCH (09:37)
[2020-02-01] MEDS: CLOPIDOGREL BISULFATE 75 MG TAB PO SCH (09:37)
[2020-02-01] MEDS: METOPROLOL SUCCINATE XL 50 MG TAB PO SCH (09:37)
[2020-02-01] MEDS: DABIGATRAN 75 MG CAP PO SCH ×2 (10:00→22:03)
[2020-02-01] MEDS ORDERED: FUROSEMIDE 20 MG/2 ML VIAL IV ONE (14:30)
[2020-02-01] MEDS ORDERED: methylPREDNISolone SOD SUCC 40 MG/ML VL IV ONE (14:45)
[2020-02-01] MEDS ORDERED: PIPERACILLIN-TAZOB 3.375GM 100 ML IV ONE (14:45)
[2020-02-01] MEDS ORDERED: LEVALBUTEROL HCL 1.25 MG/3 ML NEB NEB ONE (15:05)
[2020-02-01] MEDS: LEVALBUTEROL HCL 1.25 MG/3 ML NEB NEB SCH ×2 (18:28→22:25)
[2020-02-01] MEDS: IPRATROPIUM BROM 0.5 MG/2.5ML INH SOL NEB SCH ×2 (18:29→22:25)
[2020-02-01] MEDS: PIPERACILLIN-TAZOB 3.375GM 100 ML IV SCH (21:06)
[2020-02-01] MEDS: methylPREDNISolone SOD SUCC 40 MG/ML VL IV SCH (22:03)
[2020-02-01] MEDS: ATORVASTATIN 20 MG TAB PO SCH (22:03)
[2020-02-01] MEDS: LORazepam 2MG/ML-1ML VIAL IV PRN (22:09)
[2020-02-02] VITALS (91 sets, daily range): BP systolic 95–165; BP diastolic 54–97
[2020-02-02] MEDS: IPRATROPIUM BROM 0.5 MG/2.5ML INH SOL NEB SCH ×6 (02:19→22:12)
[2020-02-02] MEDS: LEVALBUTEROL HCL 1.25 MG/3 ML NEB NEB SCH ×6 (02:19→22:12)
[2020-02-02] MEDS: PIPERACILLIN-TAZOB 3.375GM 100 ML IV SCH ×4 (02:59→21:50)
[2020-02-02 04:00] LABS: Hematocrit 27.3 % (36.0-46.0); Hemoglobin 8.9 g/dL (12.2-16.2)
[2020-02-02 04:12] LABS: Potassium 4.7 mmol/L (3.5-5.1)
[2020-02-02 04:17] LABS: Magnesium 1.9 mg/dL (1.6-2.6)
[2020-02-02] MEDS: LORazepam 2MG/ML-1ML VIAL IV PRN ×2 (08:37→14:34)
[2020-02-02] MEDS: CHOLECALCIFEROL (VITD3) 1,000IU=25mCg TAB PO SCH (10:00)
[2020-02-02] MEDS: DABIGATRAN 75 MG CAP PO SCH ×2 (10:13→21:48)
[2020-02-02] MEDS: METOPROLOL SUCCINATE XL 50 MG TAB PO SCH (10:13)
[2020-02-02] MEDS: methylPREDNISolone SOD SUCC 40 MG/ML VL IV SCH ×2 (10:13→21:50)
[2020-02-02] MEDS: PANTOPRAZOLE 40 MG/10 ML VIAL INJ IV SCH (10:13)
[2020-02-02] MEDS: SERTRALINE HCL 50 MG TAB PO SCH (10:13)
[2020-02-02] MEDS: CLOPIDOGREL BISULFATE 75 MG TAB PO SCH (10:14)
[2020-02-02] MEDS ORDERED: FUROSEMIDE 40 MG/4 ML VIAL IV ONE (11:15)
[2020-02-02] MEDS ORDERED: SODIUM BICARBONATE 8.4 % INJ 50ML VIAL IV ONE ×3 (11:34→13:30)
[2020-02-02] MEDS: methIMAzole 5 MG TAB PO SCH (12:00)
[2020-02-02] MEDS ORDERED: MAGNESIUM SULFATE 1GM/100ML 100 ML IV ONE (14:15)
[2020-02-02] MEDS: MORPHINE SULF INJ 2 MG/ML SYRINGE 1ML IV PRN (16:00)
[2020-02-02] MEDS: FUROSEMIDE 40 MG/4 ML VIAL IV SCH (17:36)
[2020-02-02] MEDS: ATORVASTATIN 20 MG TAB PO SCH (21:47)
[2020-02-03] VITALS (57 sets, daily range): BP systolic 114–177; BP diastolic 7–97
[2020-02-03] MEDS: IPRATROPIUM BROM 0.5 MG/2.5ML INH SOL NEB SCH ×6 (02:20→22:14)
[2020-02-03] MEDS: LEVALBUTEROL HCL 1.25 MG/3 ML NEB NEB SCH ×6 (02:20→22:14)
[2020-02-03] MEDS: MORPHINE SULF INJ 2 MG/ML SYRINGE 1ML IV PRN ×5 (03:15→23:03)
[2020-02-03] MEDS: PIPERACILLIN-TAZOB 3.375GM 100 ML IV SCH ×4 (03:18→20:51)
[2020-02-03 04:27] LABS: Basophils # (auto) 0 10 ^3/uL (0-0.2); Eosinophils # (auto) 0 10 ^3/uL (0-0.8); Hemoglobin 8.1 g/dL (12.2-16.2); Lymphocytes # (auto) 0.1 10 ^3/uL (0.4-5.4); Lymphocytes % (auto) 1.1 % (10.0-50.0); Monocytes # (auto) 0.4 10 ^3/uL (0-1.3)
[2020-02-03 04:31] LABS: Basophils % (auto) 0.2 % (0.0-2.0); Hematocrit 24.1 % (36.0-46.0); Mean Corpuscular Hemoglobin 31.2 pg (28.0-32.0); Mean Corpuscular Hgb Conc. 33.7 g/dL (32.0-36.0); Mean Corpuscular Volume 92.5 fL (80.0-100.0); Monocytes % (auto) 4.1 % (0.0-12.0); Neutrophils % (auto) 94.6 % (37.0-80.0); Nucleated Red Blood Cells % 0.4 %; Platelet Count (auto) 229 10^3/uL (140-450); Red Blood Cells 2.61 10^6/uL (4.0-5.20); Red Cell Distribution Width 16.7 % (11.8-14.3); White Blood Cell 10.6 10^3/uL (4.4-10.8)
[2020-02-03 04:45] LABS: BUN/Creatinine Ratio 14.2; Calcium 9.4 mg/dL (8.5-10.1); Magnesium 2.7 mg/dL (1.6-2.6); Potassium 4.2 mmol/L (3.5-5.1)
[2020-02-03] MEDS: FUROSEMIDE 40 MG/4 ML VIAL IV SCH (05:54)
[2020-02-03] MEDS: PANTOPRAZOLE 40 MG/10 ML VIAL INJ IV SCH (08:59)
[2020-02-03] MEDS: methylPREDNISolone SOD SUCC 40 MG/ML VL IV SCH (08:59)
[2020-02-03] MEDS: CLOPIDOGREL BISULFATE 75 MG TAB PO SCH (09:41)
[2020-02-03] MEDS: METOPROLOL SUCCINATE XL 50 MG TAB PO SCH (09:41)
[2020-02-03] MEDS: CHOLECALCIFEROL (VITD3) 1,000IU=25mCg TAB PO SCH (09:41)
[2020-02-03] MEDS: DABIGATRAN 75 MG CAP PO SCH ×2 (09:41→22:00)
[2020-02-03] MEDS ORDERED: methylPREDNISolone SOD SUCC 40 MG/ML VL IV SCH (22:00)
[2020-02-03] MEDS: ATORVASTATIN 20 MG TAB PO SCH (22:00)
[2020-02-03] MEDS: ONDANSETRON HCL 4 MG/2 ML VIAL IV PRN (23:08)
[2020-02-04] VITALS (13 sets, daily range): BP systolic 101–163; BP diastolic 65–94
[2020-02-04] MEDS: LORazepam 2MG/ML-1ML VIAL IV PRN ×3 (00:21→18:00)
[2020-02-04] MEDS ORDERED: LORazepam 2MG/ML-1ML VIAL ONE (00:21)
[2020-02-04] MEDS: IPRATROPIUM BROM 0.5 MG/2.5ML INH SOL NEB SCH ×3 (02:29→09:43)
[2020-02-04] MEDS: LEVALBUTEROL HCL 1.25 MG/3 ML NEB NEB SCH ×3 (02:29→09:43)
[2020-02-04] MEDS: PIPERACILLIN-TAZOB 3.375GM 100 ML IV SCH ×2 (02:37→09:00)
[2020-02-04 03:57] LABS: Hematocrit 23.9 % (36.0-46.0)
[2020-02-04 04:08] LABS: BUN/Creatinine Ratio 14.8; Calcium 9.1 mg/dL (8.5-10.1); Potassium 4.3 mmol/L (3.5-5.1)
[2020-02-04] MEDS ORDERED: POTASSIUM CHL 20MEQ/100ML 100 ML IV ONE (04:30)
[2020-02-04] MEDS ORDERED: FUROSEMIDE 40 MG/4 ML VIAL IV SCH (10:00)
[2020-02-04] MEDS: MORPHINE SULF INJ 2 MG/ML SYRINGE 1ML IV PRN ×3 (10:10→18:56)
== END 2020-02-04 19:58 | disposition expired | DRG 246 ==
LOC: CATH 06:57 → TELE-EAST 14:00 → ICU WEST 01-30 15:51 → TELE-CENTR 02-04 12:06
PROVIDERS: ADMIT Internal Medicine; ATTEND Internal Medicine
PROC: 047C3DZ Dilation of Right Common Iliac Artery with Intraluminal Device, Percutaneous Approach (ICD-10-PCS; principal; 2020-01-27)
PROC: 4A023N8 Measurement of Cardiac Sampling and Pressure, Bilateral, Percutaneous Approach (ICD-10-PCS; 2020-01-27)
PROC: B2111ZZ Fluoroscopy of Multiple Coronary Arteries using Low Osmolar Contrast (ICD-10-PCS; 2020-01-27)
PROC: B2151ZZ Fluoroscopy of Left Heart using Low Osmolar Contrast (ICD-10-PCS; 2020-01-27)
PROC: B3101ZZ Fluoroscopy of Thoracic Aorta using Low Osmolar Contrast (ICD-10-PCS; 2020-01-27)
PROC: B41G1ZZ Fluoroscopy of Left Lower Extremity Arteries using Low Osmolar Contrast (ICD-10-PCS; 2020-01-27)
PROC: 027035Z Dilation of Coronary Artery, One Artery with Two Drug-eluting Intraluminal Devices, Percutaneous Approach (ICD-10-PCS; 2020-01-30)
PROC: 02713FZ Dilation of Coronary Artery, Two Arteries with Three Intraluminal Devices, Percutaneous Approach (ICD-10-PCS; 2020-01-30)
PROC: B241ZZ3 Ultrasonography of Multiple Coronary Arteries, Intravascular (ICD-10-PCS; 2020-01-30)
PROC: 4A023N7 Measurement of Cardiac Sampling and Pressure, Left Heart, Percutaneous Approach (ICD-10-PCS; 2020-01-30)
PROC: B2111ZZ Fluoroscopy of Multiple Coronary Arteries using Low Osmolar Contrast (ICD-10-PCS; 2020-01-30)
PROC: 30233N1 Transfusion of Nonautologous Red Blood Cells into Peripheral Vein, Percutaneous Approach (ICD-10-PCS; 2020-01-31)
DX: I21.4 Non-ST elevation (NSTEMI) myocardial infarction (principal); I50.43 Acute on chronic combined systolic (congestive) and diastolic (congestive) heart failure; J18.9 Pneumonia, unspecified organism; J96.21 Acute and chronic respiratory failure with hypoxia; N17.0 Acute kidney failure with tubular necrosis; I87.1 Compression of vein; D68.69 Other thrombophilia; M48.54XA Collapsed vertebra, not elsewhere classified, thoracic region, initial encounter for fracture; J96.10 Chronic respiratory failure, unspecified whether with hypoxia or hypercapnia; I25.10 Atherosclerotic heart disease of native coronary artery without angina pectoris; J44.9 Chronic obstructive pulmonary disease, unspecified; I48.91 Unspecified atrial fibrillation; I73.9 Peripheral vascular disease, unspecified; D64.9 Anemia, unspecified; E83.42 Hypomagnesemia; S30.1XXA Contusion of abdominal wall, initial encounter; I95.9 Hypotension, unspecified; D72.819 Decreased white blood cell count, unspecified; Z66 Do not resuscitate; Z85.118 Personal history of other malignant neoplasm of bronchus and lung; Z88.6 Allergy status to analgesic agent
CPT/HCPCS: 36415; 36600; 37221; 71045; 75710; 80048; 80162; 81001; 82565; 82805; 83735; 83880; 84132; 84484; 85007; 85014; 85018; 85025; 85027; 85610; 85730; 86850; 86900; 86901; 86920; 87081; 87086; 92928; 92978; 92979; 93005; 93458; 93460; 93567; 93926; 94640; 94660; 97110; 97163; 99152; 99153; C1725; C1751; C1874; C1887; C9113; G0378; J2250; J2405; J2543; Q9967